=== PATIENT | female | born 1930 | race Caucasian/White ===

== ENCOUNTER 2019-05-10 19:55 | Inpatient (IN) | payer MEDICARE ==
[~2019-05-10] VITALS: Ht 160 cm; Wt 71.4 kg
[2019-05-10] MEDS ORDERED: heparin 25,000 UNIT/250ml bag 250 ML IV SCH (20:04)
[2019-05-10] MEDS ORDERED: heparin 10,000 units/1 ML INJ IV ONE (20:05)
[2019-05-10] MEDS ORDERED: heparin 10,000 units/1 ML INJ IV PRN (20:05)
[2019-05-10] MEDS ORDERED: HYDROcodone/acetaminophen 5mg/325mg tablet PO PRN (20:45)
[2019-05-10] MEDS ORDERED: morphine 2 MG/ML inj. syringe IV PRN ×2 (20:45)
[2019-05-10] MEDS ORDERED: ondansetron/PF 4mg/2ml inj IV PRN (20:45)
[2019-05-10] MEDS ORDERED: acetaminophen 325mg tablet PO PRN ×2 (20:45)
[2019-05-10] MEDS ORDERED: magnesium hydroxide 30ml (MOM) UD suspension PO PRN (20:45)
[2019-05-10] MEDS ORDERED: enoxaparin 40mg/0.4ml syringe SUBCUT ONE (20:45)
[2019-05-10] MEDS ORDERED: mag hydrox/Alum hydrox/simeth 30ml oral suspension PO PRN (20:45)
--- NOTE | 2019-05-10 21:12 | NUR ---
Spoke on telephone with Dr. Cutler to verify orders for Lovenox injection with Pt already on Heparin drip. TORB to stop Heparin drip and give Lovenox injection.
[2019-05-10] MEDS ORDERED: enoxaparin 30mg/0.3ml syringe SUBCUT ONE (21:20)
--- NOTE | 2019-05-10 21:25 | NUR ---
I have received report from ARJUN Redd and had the opportunity to ask questions and assume patient care. Awaiting patient arrival to room 2622O.
[2019-05-10 21:45] VITALS: BP 159/67
--- NOTE | 2019-05-10 22:02 | NUR ---
Patient arrived to floor 2145. Patient ambulated from gurney to bed with out difficulty. 18 G R AC and is saline locked. Stable at this time. Family at bedside. Will continue to monitor closely. Addendum: 05/10/19 at 2226 by Susan Pressley RN On 2L NC oxygen saturation 96%
[2019-05-11 03:00] VITALS: BP 146/83
--- NOTE | 2019-05-11 06:00 | NUR ---
Patient in room PCU 3027. I have received report from Vignesh DÍAZ and had the opportunity to ask questions and assume patient care.
--- NOTE | 2019-05-11 06:20 | NUR ---
Problems reprioritized. Patient report given, questions answered & plan of care reviewed with ARJUN Torres.
[2019-05-11 06:34] LABS: BASOPHILS # (AUTO) 0.1 X10'3 (0-0.2); BASOPHILS % (AUTO) 0.6 % (0-1); EOSINOPHILS # (AUTO) 0.3 X10'3 (0-0.9); EOSINOPHILS % (AUTO) 3.6 % (0-6); HEMATOCRIT 39.1 % (35.0-45.0); LYMPHOCYTES # (AUTO) 1.3 X10'3 (1.1-4.8); LYMPHOCYTES % (AUTO) 15.6 % (21-51); MEAN CORPUSCULAR HEMOGLOBIN 29.9 PG (27.0-31.0); MEAN CORPUSCULAR HGB CONC 33.3 g/dL (33.0-36.5); MEAN CORPUSCULAR VOLUME 89.8 FL (78-98); MEAN PLATELET VOLUME 7.7 FL (7.4-10.4); MONOCYTES # (AUTO) 0.8 X10'3 (0-0.9); MONOCYTES % (AUTO) 10.2 % (2-12); NEUTROPHILS # (AUTO) 5.7 X10'3 (1.8-7.7); PLATELET COUNT 314 X10'3 (140-440); RED BLOOD COUNT 4.35 X10'6 (4.20-5.60); RED CELL DISTRIBUTION WIDTH 16.3 % (11.5-14.5); WHITE BLOOD COUNT 8.2 X10'3 (4.5-11.0)
[2019-05-11 06:40] LABS: ALBUMIN 2.3 G/DL (3.4-5.0); ANION GAP 11 (8-16); BLOOD UREA NITROGEN 9 MG/DL (7-18); BUN/CREATININE RATIO 15.3 (6.6-38.0); CALCIUM 8.1 MG/DL (8.5-10.1); CHLORIDE 104 MMOL/L (99-107); CREATININE 0.59 MG/DL (0.40-0.90); GLUCOSE 90 MG/DL (70-104); POTASSIUM 3.8 MMOL/L (3.5-5.1); SODIUM 139 MMOL/L (135-145); TOTAL CARBON DIOXIDE 24.5 MMOL/L (24-32); eGFR > 90 ML/MIN
[2019-05-11 07:00] VITALS: BP 148/73
[2019-05-11] MEDS ORDERED: WARF-55 PO (07:15)
[2019-05-11] MEDS ORDERED: DILT240C47 PO (07:15)
[2019-05-11] MEDS ORDERED: DULO60CA65 PO (07:15)
[2019-05-11] MEDS ORDERED: heparin 10,000 units/1 ML INJ IV PRN (09:05)
[2019-05-11] MEDS ORDERED: heparin 10,000 units/1 ML INJ IV ONE (09:05)
[2019-05-11] MEDS: heparin 25,000 UNIT/250ml bag 250 ML IV SCH ×2 (09:55→16:59)
[2019-05-11 11:00] VITALS: BP 140/81
[2019-05-11 15:00] VITALS: BP 157/95
--- NOTE | 2019-05-11 15:42 | NUR ---
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 Pt seen by ED and reports lower PO recently r/t oral issues w/ some wt loss. Pt agrees to soft to chew foods, gravy w/ meats and requests Ensure Enlive TIDWM since drinks at home. MD/dietary notified pt aware that pending MD verification prior to sending on trays. Pt has no visible signs of muscle/fat wasting, no edema, no severe weakness and lacks malnutrition criteria at this time. Will continue to monitor. Addendum: 05/11/19 at [address] Amended: Links added.
[2019-05-11] MEDS: lactose-reduced food (Ensure Enlive) - 237ml bottle PO SCH (18:00)
--- NOTE | 2019-05-11 18:33 | NUR ---
Problems reprioritized. Patient report given, questions answered & plan of care reviewed with Vignesh DÍAZ.
--- NOTE | 2019-05-11 18:46 | NUR ---
Patient in room PCU 3022M. I have received report from ARJUN Torres and had the opportunity to ask questions and assume patient care. Patient awake for bedside report and is stable at this time. 1200 units/hr of heparin infusing per provider order. Will continue to monitor closely.
[2019-05-11 19:00] VITALS: BP 141/88
[2019-05-11 23:00] VITALS: BP 164/93
--- NOTE | 2019-05-12 00:27 | NUR ---
Upon presumption of care, Heparin gtt infusing at 1200 units/hr per protocol. Per IV spreadsheet, rate was not changed from 1300 units/hr to 1200 units/hr to reflect 1700 PTT result of 80. IV spreadsheet updated and correct infusion rate documented to reflect 2300 PTT result of 86. Heparin was not held and decreased by 1 unit/kg/hr and is now infusing at 1100 units per hour. Will continue to monitor closely.
[2019-05-12] MEDS: diltiazem CD 120mg capsule (once-daily) PO SCH ×2 (02:42→02:48)
--- NOTE | 2019-05-12 02:54 | NUR ---
Patient systolic BP at 2300 164/93; 0200 171/93. Dr. Colbert notified and gave order to move up start time of patient's home med, diltiazem 240 mg PO daily to 0230. Patient denies complaints at this time and is asymptomatic. Will continue to monitor closely.
[2019-05-12 03:00] VITALS: BP 171/93
--- NOTE | 2019-05-12 03:00 | NUR ---
BP 157/94 HR 101. Will continue to monitor closely.
[2019-05-12] MEDS: heparin 25,000 UNIT/250ml bag 250 ML IV SCH ×2 (05:43→09:56)
[2019-05-12 06:00] VITALS: BP 154/89
[2019-05-12 06:06] LABS: BASOPHILS % (AUTO) 0.5 % (0-1); EOSINOPHILS # (AUTO) 0.4 X10'3 (0-0.9); EOSINOPHILS % (AUTO) 4.5 % (0-6); HEMATOCRIT 38.6 % (35.0-45.0); HEMOGLOBIN 12.8 g/dl (12.0-16.0); LYMPHOCYTES # (AUTO) 1.6 X10'3 (1.1-4.8); LYMPHOCYTES % (AUTO) 20.9 % (21-51); MEAN CORPUSCULAR HGB CONC 33.3 g/dL (33.0-36.5); MEAN CORPUSCULAR VOLUME 90.1 FL (78-98); MEAN PLATELET VOLUME 8.1 FL (7.4-10.4); MONOCYTES # (AUTO) 0.8 X10'3 (0-0.9); MONOCYTES % (AUTO) 9.7 % (2-12); NEUTROPHILS # (AUTO) 5.1 X10'3 (1.8-7.7); NEUTROPHILS % (AUTO) 64.4 % (42-75); PLATELET COUNT 314 X10'3 (140-440); RED BLOOD COUNT 4.28 X10'6 (4.20-5.60); RED CELL DISTRIBUTION WIDTH 16.2 % (11.5-14.5); WHITE BLOOD COUNT 7.9 X10'3 (4.5-11.0)
[2019-05-12 06:07] LABS: ALBUMIN 2.2 G/DL (3.4-5.0); ANION GAP 6 (8-16); BLOOD UREA NITROGEN 13 MG/DL (7-18); BUN/CREATININE RATIO 21.7 (6.6-38.0); CALCIUM 8.7 MG/DL (8.5-10.1); CHLORIDE 105 MMOL/L (99-107); GLUCOSE 99 MG/DL (70-104); POTASSIUM 3.9 MMOL/L (3.5-5.1); SODIUM 138 MMOL/L (135-145); TOTAL CARBON DIOXIDE 27.2 MMOL/L (24-32); eGFR > 90 ML/MIN
--- NOTE | 2019-05-12 06:30 | NUR ---
Patient in room PCU 3027. I have received report from ARJUN Medellin and had the opportunity to ask questions and assume patient care. Pt is sleeping. Will continue to monitor.
--- NOTE | 2019-05-12 06:30 | NUR ---
Patient in room PCU 3027. I have received report from Vignesh DÍAZ and had the opportunity to ask questions and assume patient care. Pt is in bed sleeping, all needs met at this time.
--- NOTE | 2019-05-12 06:36 | NUR ---
Problems reprioritized. Patient report given, questions answered & plan of care reviewed with ARJUN Coates and ARJUN Lopez.
--- NOTE | 2019-05-12 06:48 | NUR ---
PTT results @0500 is 120, Called Dr. Colbert and held heparin and will restart in 2 hrs and have ptt drawn 2 hrs from decrease per protocol.
[2019-05-12] MEDS: lactose-reduced food (Ensure Enlive) - 237ml bottle PO SCH ×3 (07:45→18:00)
[2019-05-12] MEDS: duloxetine 30mg CAPSULE.DR PO SCH (07:45)
[2019-05-12] MEDS ORDERED: diltiazem CD 120mg capsule (once-daily) PO SCH (08:00)
[2019-05-12 09:42] LABS: PARTIAL THROMBOPLASTIN TIME 43 SECONDS (22-32)
[2019-05-12 11:00] VITALS: BP 136/80
[2019-05-12] MEDS ORDERED: LIDOcaine 5% patch TP PRN (11:05)
[2019-05-12 15:00] VITALS: BP 145/80
--- NOTE | 2019-05-12 16:56 | NUR ---
Called Dr. Cast in [place] and left a message to have them call back regarding her coumadin prescription. Pt sees a PA, Maryse Weir. The phone numbers are [phone] and [phone]. Pt's daughter stated that the pt is not the best to get pertinent information from. The pt's daughter's name is Lita Benavides ([phone]).
--- NOTE | 2019-05-12 18:42 | NUR ---
Problems reprioritized. Patient report given, questions answered & plan of care reviewed with ARJUN Medellin.
--- NOTE | 2019-05-12 18:43 | NUR ---
Patient in room PCU 2420u. I have received report from ARJUN Coates and had the opportunity to ask questions and assume patient care. Patient awake for bedside report and stable at this time. 900 units/hr heparin infusing per protocol. Will continue to monitor closely.
[2019-05-12 19:00] VITALS: BP 148/78
[2019-05-12 23:00] VITALS: BP 163/82
--- NOTE | 2019-05-13 01:05 | NUR ---
PTT result 68 and within therapeutic range for DVT heparin gtt. Heparin infusing at 900 units/hr. Next draw for PTT at 0530. Will continue to monitor closely.
[2019-05-13 03:00] VITALS: BP 161/84
[2019-05-13] MEDS ORDERED: diltiazem 30mg tablet PO ONE (03:10)
--- NOTE | 2019-05-13 04:04 | NUR ---
Notified Dr. Colbert of elevated systolic B/P. TORB for one time give 30 mg diltiazem po and 30 mg diltiazem po HS. Will continue to monitor closely.
[2019-05-13 05:19] LABS: BASOPHILS # (AUTO) 0.1 X10'3 (0-0.2); BASOPHILS % (AUTO) 0.8 % (0-1); EOSINOPHILS # (AUTO) 0.4 X10'3 (0-0.9); EOSINOPHILS % (AUTO) 5.1 % (0-6); HEMATOCRIT 38.2 % (35.0-45.0); HEMOGLOBIN 12.8 g/dl (12.0-16.0); LYMPHOCYTES # (AUTO) 1.5 X10'3 (1.1-4.8); LYMPHOCYTES % (AUTO) 19.3 % (21-51); MEAN CORPUSCULAR HEMOGLOBIN 29.8 PG (27.0-31.0); MEAN CORPUSCULAR HGB CONC 33.5 g/dL (33.0-36.5); MEAN PLATELET VOLUME 8.1 FL (7.4-10.4); MONOCYTES # (AUTO) 0.7 X10'3 (0-0.9); MONOCYTES % (AUTO) 9.3 % (2-12); NEUTROPHILS # (AUTO) 5.1 X10'3 (1.8-7.7); NEUTROPHILS % (AUTO) 65.5 % (42-75); PLATELET COUNT 333 X10'3 (140-440); RED CELL DISTRIBUTION WIDTH 16.1 % (11.5-14.5); WHITE BLOOD COUNT 7.8 X10'3 (4.5-11.0)
[2019-05-13 05:29] LABS: ALBUMIN 2.2 G/DL (3.4-5.0); ANION GAP 8 (8-16); BLOOD UREA NITROGEN 16 MG/DL (7-18); BUN/CREATININE RATIO 29.1 (6.6-38.0); CALCIUM 8.9 MG/DL (8.5-10.1); CHLORIDE 104 MMOL/L (99-107); CREATININE 0.55 MG/DL (0.40-0.90); GLUCOSE 104 MG/DL (70-104); POTASSIUM 4.2 MMOL/L (3.5-5.1); SODIUM 140 MMOL/L (135-145); TOTAL CARBON DIOXIDE 28.4 MMOL/L (24-32); eGFR > 90 ML/MIN
--- NOTE | 2019-05-13 05:30 | NUR ---
Reassessed BP after 30 mg po diltiazem administration. SYS BP 137. Will continue to monitor closely.
[2019-05-13 06:00] VITALS: BP 137/80
--- NOTE | 2019-05-13 06:24 | NUR ---
Problems reprioritized. Patient report given, questions answered & plan of care reviewed with ARJUN King.
[2019-05-13] MEDS: lactose-reduced food (Ensure Enlive) - 237ml bottle PO SCH ×2 (08:00→13:00)
[2019-05-13] MEDS: duloxetine 30mg CAPSULE.DR PO SCH (09:02)
[2019-05-13] MEDS: diltiazem CD 120mg capsule (once-daily) PO SCH (09:02)
[2019-05-13] MEDS: heparin 25,000 UNIT/250ml bag 250 ML IV SCH (10:20)
[2019-05-13 11:00] VITALS: BP 142/59
[2019-05-13] MEDS ORDERED: ENOX100S3 SQ (11:32)
--- NOTE | 2019-05-13 11:45 | NUR ---
Patient in room PCU 3027. I have received report from ARJUN Medellin and had the opportunity to ask questions and assume patient care.
--- NOTE | 2019-05-13 14:08 | NUR ---
[id number] MESSAGE: Mrs. Watson [id number]. 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 More acute on Rt. and chronic on Lt. Report is not in EMR yet. Her ride home will be here at 3pm. Do you still want to send her home? [facility] ext [phone]
--- NOTE | 2019-05-13 14:44 | NUR ---
Did not receive answer to my page regarding patient's discharge status. Consult with Charge Nurse Cathleen Alvarez MD did order test, was aware it was being done. Able to access results.
--- NOTE | 2019-05-13 15:43 | NUR ---
Spoke with patient's grandadanter regarding her administering the Lovenox injections. She states she has done it for her mother before and feels comfortable with it. Reviewed the process, including sites, technique, skin preparation and side effects. She indicates understanding.
[2019-05-13] MEDS ORDERED: diltiazem 30mg tablet PO SCH (21:00)
== END 2019-05-13 15:48 | disposition home health service (06) | DRG 176 ==
LOC: ER 19:56 → PCU 3S 22:09 → CMPBEDREQ 05-11 19:45
PROVIDERS: ADMIT Internal Medicine; ATTEND Family Medicine
DX: I26.99 Other pulmonary embolism without acute cor pulmonale (principal); E44.0 Moderate protein-calorie malnutrition; I82.411 Acute embolism and thrombosis of right femoral vein; I82.431 Acute embolism and thrombosis of right popliteal vein; I82.512 Chronic embolism and thrombosis of left femoral vein; I82.532 Chronic embolism and thrombosis of left popliteal vein; I10 Essential (primary) hypertension; Z85.819 Personal history of malignant neoplasm of unspecified site of lip, oral cavity, and pharynx; Z86.711 Personal history of pulmonary embolism; Z90.49 Acquired absence of other specified parts of digestive tract; Z68.27 Body mass index [BMI] 27.0-27.9, adult
CPT/HCPCS: 36415; 80048; 83880; 85025; 85610; 85730; 87081; 93005; 93306; 93970; 96372; 99285; G0378; J1644; J1650